=== PATIENT | female | born 1960 | race Two or more races ===

== ENCOUNTER 2018-12-04 14:51 | Outpatient (CLI) | payer OTHER | END 2018-12-04 15:15 | disposition home or self-care (01) | LOC: MAMO-SONO 14:51 | DX: R10.2 Pelvic and perineal pain (principal); N39.0 Urinary tract infection, site not specified; N64.0 Fissure and fistula of nipple; N63.10 Unspecified lump in the right breast, unspecified quadrant; N63.20 Unspecified lump in the left breast, unspecified quadrant; Z12.31 Encounter for screening mammogram for malignant neoplasm of breast; Z87.898 Personal history of other specified conditions ==